=== PATIENT | female | born 1995 | race Caucasian/White ===

== ENCOUNTER 2021-11-20 06:50 | Inpatient (IN) ==
--- NOTE | 2021-11-10 10:28 | Anesthesiology Consultation ---
Date of Service November 10, 2021 Assessment & Plan (1) Encounter for pre-operative examination: Chart Review Chart Review: entry level management initiated -Will leave BSG day of procedure to anesthesiologist and OB (pt with gestational DM) Per nursing assessment 11/10/21, patient denies any recent travel. No known Covid positive contacts or Covid related symptoms. No known Covid infection in the past 90 days. Pt is fully vaccinated. Preop Covid testing scheduled 11/16/21= will await results History Surgery Operation Date: 11/20/21 08:50 Proposed Procedures p Section (Delivery of Baby Through Abdominal Incision) in LD - Obdulia Campos MD, FACOG Height/Weight Height: 5 ft 3 in Weight: 91.626 kg Allergies Allergy/AdvReac Type Severity Reaction Status Date / Time ibuprofen [From Advil] Allergy Intermediate hives Verified 11/10/21 09:48 Medications Home Medications Medication Instructions Recorded Confirmed Last Taken prenat.vits,laine,gix-skta-bhqtt 1 tab PO DAILY 04/14/21 11/10/21 Unknown acetone (urine) test (Ketone Urine #50 ea 07/20/21 11/06/21 Unknown Test) blood sugar diagnostic (OneTouch #150 ea 07/20/21 11/06/21 Unknown Verio test strips) blood-glucose meter (OneTouch #1 ea 07/20/21 11/06/21 Unknown Verio Flex meter) lancets 33 gauge (OneTouch Delica #150 ea 07/20/21 11/06/21 Unknown Plus Lancet) docusate sodium 100 mg capsule 200 mg PO DAILY 11/10/21 11/10/21 Unknown (Stool Softener) famotidine 20 mg tablet (Pepcid) 20 mg PO BID 11/10/21 11/10/21 Unknown Past Medical History Medical History Acid reflux ONLY DURING Gestational diabetes Past Family History Family History Aunt Deep vein thrombosis Family/Other Deep vein thrombosis Other Anemia Breast cancer Cervical cancer Colorectal cancer Diabetes Dyslipidemia Fibroid uterus Heart disease Hypertension No family history of adverse response to anesthesia Osteoporosis Ovarian cancer Prostate cancer Past Surgical History Surgical History Hx of tonsillectomy [place] teeth removed Social History Smoking Status: Never smoker Hx Alcohol Use: No Hx Substance Use: No
--- NOTE | 2021-11-13 16:52 | History & Physical Report ---
Date of Service November 13, 2021 Assessment & Plan (1) Breech presentation: Plan: IUP at 39 weeks with persistent breech presentation presents for primary LTCS the procedure and it's risks were reviewed with the Essie and her and all questions were answered to their satisfaction. History of Present Illness Primary Care Provider: Johnson Finley Patient is a 26 yo white female EDC 11/27/21 who presents for primary C/S for persistent breech presentation. complicated by GDM - diet controlled. She also had a uterine fibroid identified at the 20 week anatomy scan that was noted to be stable at 32 weeks growth scan. GBS -negative. Blood type O-negative Allergies Allergy/AdvReac Type Severity Reaction Status Date / Time ibuprofen [From Advil] Allergy Intermediate hives Verified 11/10/21 09:48 Home Medications Medication Instructions Recorded Confirmed Type prenat.vits,laine,bqf-oaas-plaxl 1 tab PO DAILY 04/14/21 11/10/21 History acetone (urine) test (Ketone Urine #50 ea 07/20/21 11/06/21 Rx Test) blood sugar diagnostic (OneTouch #150 ea 07/20/21 11/06/21 Rx Verio test strips) blood-glucose meter (OneTouch #1 ea 07/20/21 11/06/21 Rx Verio Flex meter) lancets 33 gauge (OneTouch Delica #150 ea 07/20/21 11/06/21 Rx Plus Lancet) docusate sodium 100 mg capsule 200 mg PO DAILY 11/10/21 11/10/21 History (Stool Softener) famotidine 20 mg tablet (Pepcid) 20 mg PO BID 11/10/21 11/10/21 History Patient History Medical History Acid reflux ONLY DURING Gestational diabetes Surgical History Hx of tonsillectomy [place] teeth removed Family History Aunt Deep vein thrombosis Family/Other Deep vein thrombosis Other Anemia Breast cancer Cervical cancer Colorectal cancer Diabetes Dyslipidemia Fibroid uterus Heart disease Hypertension No family history of adverse response to anesthesia Osteoporosis Ovarian cancer Prostate cancer Social History Smoking Status: Never smoker Second Hand Exposure: Yes ( A CHILD); Hx Alcohol Use: No Hx Substance Use: No Preferred Language: Kiswahili Communication Ability: Effective Radiology Asst Required: No Beliefs That Will Affect Care: None marital status: marital status details: Andre Hernandez ([phone] Current Living Situation: Spouse Current Living Situation Comment: lives with spouse, 4 cats, 1 dog, turtle, lizzards, gerbil. 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
[~2021-11-20 06:50] MED LIST: CITRIC ACID/SODIUM CITRATE 15 ML UDC PO SCH; LACTATED RINGER'S 1,000 ML IV SCH; ceFAZolin 2,000 MG in SYRINGE 0 ML IV SCH
[2021-11-20] MEDS ORDERED: LACTATED RINGER'S 1,000 ML IV SCH ×2 (07:15→12:00)
--- NOTE | 2021-11-20 07:49 | History & Physical Bridge Note ---
Date of Service November 20, 2021 History & Physical Bridge Note I have examined the patient, reviewed the History & Physical and in the interval since the performance of the History & Physical I have noted the following changes of clinical significance: no changes noted
[2021-11-20 07:50] LABS: Eosinophils # (auto) 0.06 K/uL (0-0.5); Eosinophils % (auto) 0.6 %; Hematocrit (blood only) 41.7 % (37-47); Hemoglobin 13.9 g/dL (12.0-16.0); Immature Granulocytes # (auto) 0.02 K/uL (0.00-0.02); Immature Granulocytes % (auto) 0.2 %; Lymphocytes # (auto) 1.71 K/uL (1.2-3.4); Lymphocytes % (auto) 16.3 %; Mean Corpuscular Hemoglobin 31.3 pg (25-34); Mean Corpuscular Hgb Conc 33.3 g/dL (32-36); Mean Corpuscular Volume 93.9 fL (80-100); Mean Platelet Volume 11.6 fL (7.4-10.4); Monocytes # (auto) 0.82 K/uL (0.11-0.59); Monocytes % (auto) 7.8 %; Neutrophils # (auto) 7.89 K/uL (1.4-6.5); Neutrophils % (auto) 75.1 %; Platelet Count 217 K/uL (130-400); RDW Coefficient of Variation 13.6 % (11.5-14.5); RDW Standard Deviation 46.8 fL (36.4-46.3); Red Blood Count 4.44 M/uL (4.2-5.4)
[2021-11-20 08:29] LABS: Creatinine Clr Calc Pharmacy 144.7 ml/min; Est GFR (African American) 142.7 ml/min; Est GFR (Non-African American) 123.2 ml/min
[2021-11-20] MEDS ORDERED: ONDANSETRON INJ 2 MG/ML 2 ML VIAL ONE (09:17)
[2021-11-20] MEDS ORDERED: fentaNYL citrate 100 MCG/2 ML VIAL ONE (09:17)
[2021-11-20] MEDS ORDERED: MoRPHine SULFATE PF 1 MG/ML 10 ML AMP/VIAL ONE (09:17)
[2021-11-20] MEDS ORDERED: OXYTOCIN 10 UNITS/ML 10ML VIAL ONE (10:47)
[2021-11-20] MEDS ORDERED: PHENYLEPHRINE 100MCG/ML 5ML SYR ONE (10:47)
[2021-11-20] MEDS ORDERED: NALBUPHINE HCL INJ 10 MG/ML AMP IV PRN (11:21)
[2021-11-20] MEDS ORDERED: ePHEDrine sulfate 50 MG/ML AMP IV PRN (11:21)
[2021-11-20] MEDS ORDERED: NALOXONE HCL 0.4 MG/1 ML VIAL/CARP IV PRN (11:21)
[2021-11-20] MEDS ORDERED: LACTATED RINGER'S 500 ML IV PRN (11:21)
[2021-11-20] MEDS ORDERED: ACETAMINOPHEN 1000 MG/100 ML IV IV PRN (11:21)
[2021-11-20] MEDS ORDERED: HYDROmorphone INJ 0.5 MG/0.5 ML SYR IV PRN (11:21)
[2021-11-20] MEDS ORDERED: MoRPHine SULFATE PF 1 MG/ML 10 ML AMP/VIAL INT SPINAL ONE (11:21)
[2021-11-20] MEDS ORDERED: NALOXONE HCL 0.08 MG in SYRINGE 1.8 ML IV PRN (11:21)
[2021-11-20] MEDS ORDERED: NALOXONE HCL 1 MG in SODIUM CHLORIDE 0.9% 1000ML 1,000 ML IV PRN (11:21)
[2021-11-20] MEDS ORDERED: diphenhydrAMINE 50 MG/ML VIAL IV PRN (11:21)
[2021-11-20] MEDS ORDERED: ONDANSETRON INJ 2 MG/ML 2 ML VIAL IV PRN ×2 (11:21→11:53)
[2021-11-20] MEDS ORDERED: KETOROLAC 30 MG/ML VIAL ONE (11:26)
[2021-11-20] MEDS ORDERED: NO NARCOTICS OR SEDATIVES SCH (11:30)
[2021-11-20] MEDS ORDERED: SODIUM CHLORIDE 0.9% 1000ML 1,000 ML IV SCH (11:30)
[2021-11-20] MEDS ORDERED: DC INTRASPINAL MORPHINE SCH (11:30)
--- NOTE | 2021-11-20 11:38 | Post Operative Brief Note ---
PG Immediate Post Op with CF Date of Surgery November 20, 2021 Pre & Post Diagnosis Operation Date: 11/20/21 08:50 Pre-Op Diagnosis: Breech Post-Op Diagnosis: Breech - delivery of viable male infant I identified the patient and participated in the time-out.: Yes Procedure Operation Date: 11/20/21 08:50 Actual Procedures p Low Transverse Section; delivery of live male - Obdulia Cervantes MD, FACOG Surgeon Obdulia Campos MD, FACOG Seo Expert Helen Genao MD Estimated Blood Loss 600 Findings Consistent with Post-Op Diagnosis Specimens Specimen Description: a. cord blood b. placenta-hold Drains Carrero Catheter (inserted following spinal with return of clear yellow urine) Anesthesia Type Spinal Complications none Disposition Accompanied Patient To Recovery: Yes
[2021-11-20] MEDS ORDERED: SENNA 8.6 MG TAB PO PRN (11:53)
[2021-11-20] MEDS ORDERED: KETOROLAC 30 MG/ML VIAL IV PRN (11:53)
[2021-11-20] MEDS ORDERED: DIPHTHERIA/TETANUS/PERTUSSIS 0.5 ML SYR/VIAL IM ONE (11:53)
[2021-11-20] MEDS ORDERED: MAGNESIUM HYDROXIDE SUSP 30 ML UDC PO PRN (11:53)
[2021-11-20] MEDS ORDERED: SUPERCREAM 0.870% 15 GM JAR EXT PRN (11:53)
[2021-11-20] MEDS ORDERED: BENZOCAINE 20% AER SPR 82.5 GM CAN EXT PRN (11:53)
[2021-11-20] MEDS ORDERED: HYDROCORTISONE ACETATE 25 MG SUPP PR PRN (11:53)
--- NOTE | 2021-11-20 12:52 | Operative Report ---
PG Post Operative Report Pre & Post Diagnosis Operation Date: 11/20/21 08:50 Pre-Op Diagnosis: Breech Post-Op Diagnosis: Breech I identified the patient and participated in the time-out.: Yes Procedure Operation Date: 11/20/21 08:50 Actual Procedures p Low Transverse Section; delivery of live male - Obdulia Cervantes MD, FACOG Surgeon Obdulia Campos MD, FACOG Manager Fine Helen Genao MD Estimated Blood Loss 600 Findings Consistent with Post-Op Diagnosis 4cm pedunculated fibroid originating from right fundus. Specimens placenta to hold Drains Carrero catheter to straight drainage- clear urine at end of case Anesthesia Type Spinal Complications none Disposition Accompanied Patient To Recovery: Yes Indications persistent breech presentation at 39 weeks- EDC 11/27/21 Description of Procedure After the patient received effective spinal anesthetic she was prepped and draped in usual sterile fashion. A low transverse skin incision was made the scalpel and carried to the fascia with the same scalpel. The fascial incision was then extended with Wheatley scissors and the edges of the fascia were grasped with Jyothi clamps. The rectus muscles were bluntly sharply dissected off of the overlying fascia. Rectus muscles were in the midline and the underlying peritoneum elevated sharply. The bladder was then taken down off the anterior surface of the uterus and placed behind the bladder blade. The lower uterine segment was entered with a scalpel and extended transversely membranes membranes were ruptured for clear fluid. The was delivered from the esme breech presentation with moderate fundal pressure pressure. After the cord was clamped and cut the was vigorous and crying. The infant was then handed off to Dr. Flores for further evaluation. The placenta was manually removed and the uterus exteriorized to cover the clean lap sponge. The uterus was closed in 2 layers ending running locking imbricating fashion with 0 Monocryl. Bleeding in the area of the left uterine vessels was secured with a [id number]-mtovx stitch hematoma developed below the uterine incision on the left sidewall of the uterus. Pressure was used to control hematoma. The hematoma did not seem to be enlarging in size and there was no active bleeding posterior to the uterus or in the area of the uterine vessels. After suctioning some blood and fluid from the posterior cul-de-sac the uterus was placed back inside the uterine cavity the uterine incision was examined once more and continue to have excellent hemostasis the hematoma also did not enlarge and appear to be stable. The gutters were explored and found to be free of any blood clot or fluid. The rectus muscle were brought together in the midline with individual stitches of 0 Monocryl. The fascia was closed in a running fashion with 0 Vicryl. After irrigating the adipose layer the skin edges were reapproximated using a subcuticular stitch of 4-0 Vicryl. Patient and tolerated the procedure well and were stable upon arrival in labor and delivery. I attest to the content of the Intraoperative Record and any orders documented therein. Any exceptions are noted below. OB Procedure Charges 60463
[2021-11-20] MEDS: OXYTOCIN 20 UNITS in LACTATED RINGER'S 1,000 ML IV SCH ×2 (13:51→23:25)
[2021-11-20] MEDS: SIMETHICONE 80 MG CHEW PO SCH ×3 (13:59→21:16)
[2021-11-20] MEDS ORDERED: PROMETHAZINE HCL 25 MG in SODIUM CHLORIDE 0.9% 50 ML IV PRN (16:16)
[2021-11-20] MEDS: DOCUSATE SODIUM 100 MG CAP PO SCH (21:16)
[2021-11-20] MEDS: KETOROLAC 30 MG/ML VIAL IV PRN (21:17)
--- NOTE | 2021-11-21 00:39 | Anesthesiology Progress Note ---
Date of Service November 21, 2021 Anesthesia Post Procedure Vital Signs Vital Signs: Temp Pulse Pulse Resp BP BP Pulse Ox 11/20/21 23:28 20 96 11/20/21 22:28 20 95 11/20/21 21:25 20 98 11/20/21 20:10 36.9 C 70 20 126/79 99 11/20/21 18:30 20 98 11/20/21 17:30 20 98 11/20/21 16:30 20 98 11/20/21 15:30 36.5 C 65 67 20 137/74 137/74 98 11/20/21 15:27 77 90 11/20/21 15:26 76 98 11/20/21 15:21 36.5 C 80 20 95 11/20/21 15:17 78 94 11/20/21 15:16 75 96 11/20/21 15:11 65 98 11/20/21 15:06 58 L 98 11/20/21 15:01 64 97 11/20/21 14:56 67 98 11/20/21 14:51 83 98 11/20/21 14:46 77 98 11/20/21 14:41 69 97 11/20/21 14:36 71 97 11/20/21 14:31 78 95 11/20/21 14:30 75 93 11/20/21 14:26 72 95 11/20/21 14:21 65 98 11/20/21 14:16 65 97 11/20/21 14:11 97 H 98 11/20/21 14:06 66 97 11/20/21 14:01 67 97 11/20/21 13:56 66 97 11/20/21 13:51 62 98 11/20/21 13:46 63 98 11/20/21 13:44 65 20 130/73 11/20/21 13:41 72 97 11/20/21 13:36 64 99 11/20/21 13:34 67 131/66 11/20/21 13:31 60 97 11/20/21 13:26 69 97 11/20/21 13:21 61 98 11/20/21 13:16 72 97 11/20/21 13:15 77 136/74 91 11/20/21 13:14 20 11/20/21 13:11 64 98 11/20/21 13:06 71 96 11/20/21 13:04 68 142/77 H 11/20/21 13:01 71 98 11/20/21 12:56 73 98 11/20/21 12:54 70 131/77 11/20/21 12:51 71 98 11/20/21 12:46 77 98 11/20/21 12:45 80 85 L 11/20/21 12:44 70 20 134/71 11/20/21 12:41 62 99 11/20/21 12:36 61 97 11/20/21 12:34 63 20 117/60 11/20/21 12:31 64 98 11/20/21 12:26 75 99 11/20/21 12:25 75 112/64 11/20/21 12:24 20 11/20/21 12:21 72 99 11/20/21 12:16 64 100 11/20/21 12:15 68 154/74 H 11/20/21 12:14 78 20 87 L 11/20/21 12:11 71 99 11/20/21 12:06 72 100 11/20/21 12:04 75 20 130/80 11/20/21 12:01 71 100 11/20/21 11:56 72 121/71 94 11/20/21 11:54 20 11/20/21 11:51 65 100 11/20/21 11:46 69 99 11/20/21 11:44 36.6 C 82 20 127/76 11/20/21 09:51 83 149/96 H 11/20/21 09:35 74 141/85 H 11/20/21 09:20 78 137/87 11/20/21 09:06 80 135/85 11/20/21 08:50 76 133/88 11/20/21 08:36 88 139/90 11/20/21 08:21 86 129/97 11/20/21 07:38 90 144/97 H 11/20/21 07:18 36.8 C 20 168/90 H 11/20/21 07:05 82 175/95 H Pain Intensity Bilateral Abdomen: Pain Intensity: 3 Transfer of Care Handoff Completed per policy Notes Mental Status: alert / awake / arousable and participated in evaluation Nausea / Vomiting: adequately controlled Pain: adequately controlled Airway Patency, RR, SpO2: stable & adequate BP & HR: stable & adequate Hydration State: stable & adequate Neuraxial Anesthesia: was administered and sensory block is resolving Anesthetic Complications: no major complications apparent and Pt Satisfied with anesthetic care
[2021-11-21] MEDS: KETOROLAC 30 MG/ML VIAL IV PRN (03:30)
[2021-11-21] MEDS ORDERED: ZOLPIDEM TARTRATE 5 MG TAB PO PRN (05:22)
[2021-11-21] MEDS ORDERED: PROMETHAZINE HCL 25 MG in SODIUM CHLORIDE 0.9% 50 ML IV PRN (05:22)
[2021-11-21] MEDS ORDERED: diphenhydrAMINE Capsule 25 MG CAP PO PRN (05:22)
[2021-11-21] MEDS ORDERED: diphenhydrAMINE 50 MG/ML VIAL IV PRN (05:22)
[2021-11-21] MEDS ORDERED: MEPERIDINE HCL 50 MG/ML CARP IV PRN (05:22)
[2021-11-21 05:55] LABS: Basophils # (auto) 0.01 K/uL (0-0.2); Basophils % (auto) 0.1 %; Eosinophils # (auto) 0.05 K/uL (0-0.5); Eosinophils % (auto) 0.4 %; Hematocrit (blood only) 36.1 % (37-47); Hemoglobin 12.1 g/dL (12.0-16.0); Immature Granulocytes # (auto) 0.03 K/uL (0.00-0.02); Immature Granulocytes % (auto) 0.2 %; Lymphocytes # (auto) 1.96 K/uL (1.2-3.4); Lymphocytes % (auto) 15.9 %; Mean Corpuscular Hemoglobin 31.6 pg (25-34); Mean Corpuscular Hgb Conc 33.5 g/dL (32-36); Mean Corpuscular Volume 94.3 fL (80-100); Mean Platelet Volume 11.2 fL (7.4-10.4); Monocytes # (auto) 0.86 K/uL (0.11-0.59); Neutrophils # (auto) 9.44 K/uL (1.4-6.5); Neutrophils % (auto) 76.4 %; Platelet Count 195 K/uL (130-400); RDW Coefficient of Variation 13.6 % (11.5-14.5); RDW Standard Deviation 47.2 fL (36.4-46.3); Red Blood Count 3.83 M/uL (4.2-5.4); White Blood Count 12.35 K/uL (4.8-10.8)
--- NOTE | 2021-11-21 06:34 | Obstetrical Progress Note ---
Date of Service November 21, 2021 Assessment & Plan (1) Encounter for supervision of normal intrauterine in primigravida, antepartum: Plan: 26 yo , now , POD 1 s/p LTCS at 39 weeks -Continue routine care -Vitals reviewed- HDS, afebrile -O-, GBS-, Rubella immune, baby is Rh-, so no additional Rhogam -Encourage ambulation, regular diet -Pain control with ibuprofen, acetaminophen PRN -Encourage -Hgb 12.1 -F/u in [address] Cervantes Admission and Anticipated Discharge Date Admission Date: November 20, 2021 Supervising Physician Co-Signing Physician Notes Resident Physician Supervision Note: I interviewed and examined the patient. Discussed with Dr. Stephens and agree with findings and plan as documented in the note. Any exceptions or clarifications are listed here: [None] Documented By: Obdulia Campos MD, FACOG Subjective POD 1 s/p LCTS. Patient seen and examined at bedside. Reports no acute overnight events. Ambulating, but hasn't voided w/o mijares yet. Mijares removed 2 hours prior to interview. Passing gas w/o BM. Regular diet w/o N/V. Lochia small per patient. w/o complication. Pain 2/10 ontrolled with motrin and tylenol, no percocet used. Review of Systems Review of Systems: Denies fevers/chills. Denies dyspnea, cough. Denies chest pain. Denies breast pain or discharge. Denies dysuria. Denies headache. Denies back pain. Physical Exam Physical Exam: General: Alert, oriented, no acute distress Cardiac: Regular rate and rhythm, normal S1, S2. No murmurs appreciated. Respiratory: Clear to auscultation b/l with good air flow entry, symmetric chest rise and fall. No wheezes or crackles. No increased work of breathing or accessory muscle use Abdomen: Soft, nontender, nondistended. Fundus firm and palpable at 2 cm below umbilicus. Surgical incision clean, dry and intact without erythema, warmth or drainage. Bowel sounds appreciated. No guarding or rebound. Skin: No rashes or lesions Extremities: Warm, dry, well-perfused with capillary refill <2s b/l. No lower extremity edema, erythema or swelling. Negative James's sign b/l. Results & Data ([facility]) Vital Signs (Past 12 Hours) Vital Signs Temp Pulse Pulse Resp BP BP Pulse Ox 11/21/21 05:25 18 99 11/21/21 04:30 18 99 11/21/21 03:30 36.8 C 67 18 116/70 99 11/21/21 02:10 18 99 11/21/21 01:30 18 99 11/21/21 00:00 36.7 C 65 18 119/76 99 11/20/21 23:28 20 96 11/20/21 23:15 18 99 11/20/21 22:28 20 95 11/20/21 21:25 20 98 11/20/21 20:10 36.9 C 70 20 126/79 99
[2021-11-21] MEDS: PRENATAL VITAMIN 1 TAB PO SCH (08:32)
[2021-11-21] MEDS: DOCUSATE SODIUM 100 MG CAP PO SCH ×2 (08:33→20:38)
[2021-11-21] MEDS: SIMETHICONE 80 MG CHEW PO SCH ×4 (08:33→20:38)
[2021-11-21] MEDS: FERROUS SULFATE 325 MG TAB PO SCH (08:33)
[2021-11-21] MEDS: IBUPROFEN 600 MG TAB PO PRN ×3 (08:37→22:43)
[2021-11-21] MEDS: oxyCODONE/ACETAMINOPHEN 5mg/325mg TAB PO PRN ×3 (08:38→22:43)
[2021-11-21] MEDS ORDERED: bisacodyL 5 MG TABEC PO SCH (20:00)
[2021-11-22] MEDS: IBUPROFEN 600 MG TAB PO PRN ×2 (03:51→10:57)
[2021-11-22] MEDS: oxyCODONE/ACETAMINOPHEN 5mg/325mg TAB PO PRN ×2 (03:52→10:58)
--- NOTE | 2021-11-22 06:16 | Obstetrical Progress Note ---
Date of Service November 22, 2021 Assessment & Plan (1) Encounter for supervision of normal intrauterine in primigravida, antepartum: Plan: 26 yo , now , POD 1 s/p LTCS at 39 weeks -Expect D/C today -Continue routine care -Vitals reviewed- HDS, afebrile -O-, GBS-, Rubella immune, baby is Rh-, so no additional Rhogam -Encourage ambulation, regular diet -Pain control with ibuprofen, acetaminophen PRN -Encourage -Hgb 12.1 -F/u in [address] Cervantes Admission and Anticipated Discharge Date Admission Date: November 20, 2021 Supervising Physician Co-Signing Physician Notes Resident Physician Supervision Note: I interviewed and examined the patient. Discussed with Dr. Stephens and agree with findings and plan as documented in the note. Any exceptions or clarifications are listed here: POD#2 doing well. DC home. Rx percocet #20 tabs to [facility]. Followup in office in 6w. Reviewed discharge planning. Documented By: Stefania Amos, Subjective POD 2 s/p LCTS. Patient seen and examined at bedside. Reports no acute overnight events. Ambulating and voiding. Passing gas w/o BM. Regular diet w/o N/V. Lochia small per patient. w/o complication. Pain 2/10 controlled with motrin and tylenol, no percocet used. Review of Systems Review of Systems: Denies fevers/chills. Denies dyspnea, cough. Denies chest pain. Denies breast pain or discharge. Denies dysuria. Denies headache. Denies back pain. Physical Exam Physical Exam: General: Alert, oriented, no acute distress Cardiac: Regular rate and rhythm, normal S1, S2. No murmurs appreciated. Respiratory: Clear to auscultation b/l with good air flow entry, symmetric chest rise and fall. No wheezes or crackles. No increased work of breathing or accessory muscle use Abdomen: Soft, nontender, nondistended. Fundus firm and palpable at 2 cm below umbilicus. Surgical incision clean, dry and intact without erythema, warmth or drainage. Bowel sounds appreciated. No guarding or rebound. Skin: No rashes or lesions Extremities: Warm, dry, well-perfused with capillary refill <2s b/l. No lower extremity edema, erythema or swelling. Negative James's sign b/l. Results & Data ([facility]) Vital Signs (Past 12 Hours) Vital Signs Temp Pulse Resp BP Pulse Ox 11/21/21 23:15 36.7 C 84 18 136/87 100
[2021-11-22 06:44] LABS: Hematocrit (blood only) 33.5 % (37-47); Hemoglobin 10.7 g/dL (12.0-16.0)
[2021-11-22] MEDS: SIMETHICONE 80 MG CHEW PO SCH (09:21)
[2021-11-22] MEDS: PRENATAL VITAMIN 1 TAB PO SCH (09:21)
[2021-11-22] MEDS: FERROUS SULFATE 325 MG TAB PO SCH (09:22)
[2021-11-22] MEDS: DOCUSATE SODIUM 100 MG CAP PO SCH (09:22)
[2021-11-22] MEDS ORDERED: bisacodyL 10 MG SUPP PR PRN (11:53)
--- NOTE | 2021-11-28 11:18 | Discharge Summary (DS) ---
DATE OF ADMISSION: 11/20/2021 DATE OF DISCHARGE: 11/22/2021 PRINCIPAL DIAGNOSIS: Intrauterine at 39 weeks with persistent breech presentation. PRINCIPAL PROCEDURE: Primary low transverse section. HISTORY: The patient is a 26-year-old 1, para 0 white female, EDC of 11/27/2021, presented f or primary section because of persistent breech presentation. The low transverse s ection was done without complications. She had an uncomplicated postop course. She was tolerating r egular diet on her first postop day, ambulating without difficulty, voiding without difficulty. Pain was well controlled with p.o. Tylenol and Motrin. Hemoglobin on admission was 13.9, hematocrit of 4 1.7. First postop day hemoglobin 12.1, hematocrit 36.1. Second postop day hemoglobin 10.7, hematocrit 33.5. She was sent home in good condition with a prescription for Motrin 600 mg p.o. q.6 hours p.r. n. pain, Tylenol 650 mg p.o. q.6 hours p.r.n. pain. She is to see me in the office in 6 weeks for fo nicole. She is to call for temperature of 101 degrees or higher, heavy vaginal bleeding, burning wit h urination, increased redness, drainage or pain in her incision, calf tenderness or any other concer ns. Job ID: [id number]
== END 2021-11-22 12:44 | disposition home or self-care (01) | DRG 788 ==
LOC: 4S1 → EDSTATUS 08:50 → 4S2 15:50

== ENCOUNTER 2025-01-05 15:09 | Inpatient (IN) ==
[2025-01-05] MEDS ORDERED: Patient's ALLERGY Info needs ENTERED STA (16:25)
[2025-01-05] MEDS: LACTATED RINGER'S 1,000 ML IV ONE (16:42)
[2025-01-05 16:52] LABS: Hematocrit (blood only) 41.4 % (37.0-47.0); Hemoglobin 14.1 g/dl (12.0-16.0); Mean Corpuscular Hemoglobin 31.5 pg (25.0-34.0); Mean Corpuscular Hgb Conc 34.1 g/dL (32.0-36.0); Mean Corpuscular Volume 92.6 fL (80.0-100.0); Mean Platelet Volume 11.6 fL (9.4-12.4); Platelet Count 201 K/uL (130-400); RDW Coefficient of Variation 13.4 % (11.5-14.5); RDW Standard Deviation 45.3 fL (36.4-46.3); Red Blood Count 4.47 M/uL (4.20-5.40); White Blood Count 9.58 K/ul (4.8-10.8)
[2025-01-05 17:10] LABS: Albumin Level 3.5 gm/dl (3.4-5.0); BUN Creatinine Ratio 21.3 (10-20); Bilirubin Direct 0.1 mg/dl (0-0.2); Bilirubin,Total 0.4 mg/dl (0.2-1.0); Calcium 9.6 mg/dl (8.6-10.3); Creatinine Clr Calc Pharmacy 146.7 ml/min; Globulin 3.4 gm/dl (2.5-4.0); Potassium 3.8 mmol/L (3.5-5.1); Total Protein 6.9 gm/dl (6.0-8.3)
--- NOTE | 2025-01-05 17:38 | History & Physical Report ---
Date of Service January 05, 2025 Assessment & Plan (1) 39 weeks gestation of : (2) Velamentous insertion of umbilical cord: (3) Previous delivery affecting , antepartum: (4) Elevated blood pressure reading: Plan fhts currently reassuring however non reactive. past documented decels would require continued close monitoring. bps now elevated. labs normal. ? developing gest htn. prior c/s and would plan repeat c/s and so keep npo. given ega do not think any other testing like civil design specialist or bpp would reassure me enough to not continue to monitor or deliver. I have reviewed such with couple. The verbalize understanding. History of Present Illness Chief Complaint: sent from office after decel on monitor Primary Care Provider: NO PCP 29yo at 37+wks maynor presents to LD from office when she was there for routine visit with nst and nst captured deceleration of heart tones. Patient was having wkly nsts due to velamentous insertion of umbilical cord. Denies rom, vb. +FM. No ctx that she feels. Of note arrival bps elevated x 2. No catherine or visual change No ruq pain. Has not eaten since about 11am. She apparently had 2min ? decels of fhts in office to 70s per RN ACLS in office. She was sent here and on arrival fhts 145 with no appreciable accels and no decels. Nursing felt fhts may have been 100s on arrival but not traced well. Opted to start IV fluid bolus and obtain labs and keep npo as she would be repeat c/s for delivery. Upon getting up to void and returning to monitor, fhts again notably in 100-110s with return in baseline in 2min time and followed by variables with no 15 x15 accels and good variability. I was called and arrived to bedside. PNC c/b 1. Prior c/s, desires repeat c/s 2. GDM diet controlled. 3. Velamentous cord insertion 4. Rh neg 5. Uterine fibroid. PNL rh neg, RI, GBS neg. OBH: prior c/s GYNH: nl paps no stds Allergies Allergy/AdvReac Type Severity Reaction Status Date / Time No Known Drug Allergies Allergy Unknown Verified 01/05/25 16:46 Home Medications Medication Instructions Recorded Confirmed Type prednisolone acetate 1 drp ophthalmic (eye) Q OTHER DAY 06/10/24 01/05/25 History acetone (urine) test (Ketone Urine #50 ea 06/17/24 01/05/25 Rx Test strips) blood sugar diagnostic (OneTouch #150 ea 06/17/24 01/05/25 Rx Verio test strips) blood-glucose meter (OneTouch #1 ea 06/17/24 01/05/25 Rx Verio Reflect Meter) lancets 33 gauge (OneTouch Delica #150 ea 06/17/24 01/05/25 Rx Plus Lancet) vits no.124-ferrous fum 1 tab PO DAILY 01/05/25 01/05/25 History 27 mg iron-folic acid 800 mcg tablet ( Vitamin) Patient History Medical History Varicella vaccination Encounter for pre-operative examination Acid reflux Gestational diabetes Surgical History S/P section [place] teeth removed Hx of tonsillectomy Family History Aunt Deep vein thrombosis Diabetes Family/Other Deep vein thrombosis Sister Breast cancer Uncle Colorectal cancer Grandmother (Maternal) Diabetes Other Anemia Cervical cancer Dyslipidemia Fibroid uterus Heart disease Hypertension No family history of adverse response to anesthesia Osteoporosis Ovarian cancer Prostate cancer Social History (Updated 06/10/24 @ 10:54 by Anai Cordova) Smoking Status: Never smoker Second Hand Exposure: Yes ( A CHILD); Do You Dip or Chew Tobacco: No; Hx Alcohol Use: No Hx Substance Use: No Preferred Language: Lithuanian Communication Ability: Effective Software Validation Technician Required: No Beliefs That Will Affect Care: None marital status: marital status details: Andre Hernandez (28) [phone] Current Living Situation: Spouse and Family Current Living Situation Comment: and son current occupational status: employed current occupation: [employer] Other Information That Helps Us Care for You: No Feels Safe at Home: Yes Safety Concerns: Feels Safe At This Time Assistive Devices: None Review of Systems as per Subjective / HPI Physical Exam Constitutional: WD/WN, vitals as above Respiratory: normal respiratory effort, lungs clear to auscultation Cardiovascular: Rate/Rhythm: regular rate and regular rhythm Gastrointestinal (Abdomen): soft gravid nt Musculoskeletal: no edema nontender calves Neurologic: grossly normal Psychiatric: A+Ox3, euthymic affect Genitourinary: OB Exam Monitor Tracing: + external FHT monitor used, + external uterine monitor used (q7min, no decels with ctx but not qualifying for civil design specialist), + category I (currently 145, non reactive but reassuring. ) and + normal FHT variability Results & Data Vital Signs (Past 12 Hours) Vital Signs Temp Pulse Resp BP 01/05/25 17:18 81 01/05/25 17:18 144/86 H 01/05/25 17:02 75 01/05/25 17:02 133/81 01/05/25 16:15 104 H 01/05/25 16:15 121/86 01/05/25 16:00 99 H 01/05/25 16:00 137/89 01/05/25 15:33 98 H 01/05/25 15:33 141/92 H 01/05/25 15:27 98.1 F 20 01/05/25 15:20 96 H 139/104 H Coding Level of Care Code None Diagnoses 39 weeks gestation of Z3A.39 Velamentous insertion of umbilical cord O43.129 Previous delivery affecting , antepartum O34.219 Elevated blood pressure reading R03.0
[2025-01-05] MEDS ORDERED: MoRPHine SULFATE PF 1 MG/ML 10 ML AMP/VIAL ONE (17:49)
--- NOTE | 2025-01-05 17:49 | Anesthesiology Consultation ---
Date of Service January 05, 2025 Assessment & Plan Chart Review Chart Review: Acceptable Risk for Surgery and Patient NOT seen in Pre Admission Testing Consults Requested none History Height/Weight Height: 5 ft 3 in Weight: 92.079 kg Allergies Allergy/AdvReac Type Severity Reaction Status Date / Time No Known Drug Allergies Allergy Unknown Verified 01/05/25 16:46 Medications Home Medications Medication Instructions Recorded Confirmed Last Taken prednisolone acetate 1 drp ophthalmic (eye) Q OTHER DAY 06/10/24 01/05/25 12/29/24 08:00 acetone (urine) test (Ketone Urine #50 ea 06/17/24 01/05/25 Unknown Test strips) blood sugar diagnostic (OneTouch #150 ea 06/17/24 01/05/25 Unknown Verio test strips) blood-glucose meter (OneTouch #1 ea 06/17/24 01/05/25 Unknown Verio Reflect Meter) lancets 33 gauge (OneTouch Delica #150 ea 06/17/24 01/05/25 Unknown Plus Lancet) vits no.124-ferrous fum 1 tab PO DAILY 01/05/25 01/05/25 01/05/25 15:44 27 mg iron-folic acid 800 mcg tablet ( Vitamin) Past Medical History Medical History Varicella vaccination Encounter for pre-operative examination Acid reflux Gestational diabetes Past Family History Family History Aunt Deep vein thrombosis Diabetes Family/Other Deep vein thrombosis Sister Breast cancer Uncle Colorectal cancer Grandmother (Maternal) Diabetes Other Anemia Cervical cancer Dyslipidemia Fibroid uterus Heart disease Hypertension No family history of adverse response to anesthesia Osteoporosis Ovarian cancer Prostate cancer Past Surgical History Surgical History S/P section [place] teeth removed Hx of tonsillectomy Social History Smoking Status: Never smoker Do You Dip or Chew Tobacco: No Hx Alcohol Use: No Hx Substance Use: No Physical Exam Vital Signs Last Vital Signs Temp 36.7 C 01/05/25 15:27 Pulse 86 01/05/25 17:33 Resp 20 01/05/25 15:27 BP 149/89 H 01/05/25 17:33 Testing Laboratory Results 01/05/25 16:37 01/05/25 16:37
[2025-01-05] MEDS ORDERED: PHENYLEPHRINE HCL 10 MG/ML VIAL ONE (17:50)
[2025-01-05] MEDS ORDERED: fentaNYL citrate PF 100 MCG/2 ML VIAL ONE (17:50)
[2025-01-05] MEDS ORDERED: OXYTOCIN 10 UNITS/ML VIAL ONE ×3 (17:55)
[2025-01-05] MEDS ORDERED: LACTATED RINGER'S 1,000 ML IV SCH ×3 (18:00→19:36)
--- NOTE | 2025-01-05 18:00 | Labor Progress Brief Note ---
Date of Service January 05, 2025 Subjective pt resting on side as was coming out to check position and dvp with u/s Assessment & Plan (1) 37 weeks gestation of : (2) Velamentous insertion of umbilical cord: (3) Previous delivery affecting , antepartum: (4) Elevated blood pressure reading: (5) Non-reassuring heart tones complicating , antepartum: Plan now with this recurrent spont decel rec to couple that we proceed to c/s. consent reviewed and signed. anesth and nursery called. abx ordered. possible dx of gest htn as well, will keep in mind. bedside u/s cephalic and normal dvp on brief bedside u/s. no evidence of CHEYANNE fibroid. Physical Exam Constitutional: WD/WN, vitals as above Genitourinary: OB Exam Monitor Tracing: + external FHT monitor used (2 minute decel with benjamin in 70s, resolved with position change) Results & Data Vital Signs (Past 12 Hours) Vital Signs Temp Pulse Resp BP 01/05/25 17:48 83 01/05/25 17:48 162/85 H 01/05/25 17:33 86 01/05/25 17:33 149/89 H 01/05/25 17:18 81 01/05/25 17:18 144/86 H 01/05/25 17:02 75 01/05/25 17:02 133/81 01/05/25 16:15 104 H 01/05/25 16:15 121/86 01/05/25 16:00 99 H 01/05/25 16:00 137/89 01/05/25 15:33 98 H 01/05/25 15:33 141/92 H 01/05/25 15:27 98.1 F 20 01/05/25 15:20 96 H 139/104 H Coding Level of Care Code None Diagnoses 37 weeks gestation of Z3A.37 Velamentous insertion of umbilical cord O43.129 Previous delivery affecting , antepartum O34.219 Elevated blood pressure reading R03.0 Non-reassuring heart tones complicating , antepartum O36.8390
[2025-01-05] MEDS: ACETAMINOPHEN 500 MG TAB PO SCH (18:02)
[2025-01-05] MEDS: CITRIC ACID/SODIUM CITRATE 15 ML UDC PO SCH (18:03)
[2025-01-05] MEDS: ceFAZolin 2000MG 2,000 MG/15 ML SYR IV SCH (18:04)
[2025-01-05] MEDS ORDERED: ONDANSETRON INJ 2 MG/ML 2 ML VIAL IV PRN (18:24)
[2025-01-05] MEDS ORDERED: MoRPHine SULFATE PF 1 MG/ML 10 ML AMP/VIAL INT SPINAL ONE (18:24)
[2025-01-05] MEDS ORDERED: DROPERIDOL 5 MG/2 ML VIAL IV PRN (18:24)
[2025-01-05] MEDS ORDERED: NALOXONE HCL 1 MG in SODIUM CHLORIDE 0.9% 1,000 ML IV PRN (18:24)
[2025-01-05] MEDS ORDERED: NALOXONE HCL 0.4 MG/1 ML VIAL/CARP IV PRN (18:24)
[2025-01-05] MEDS ORDERED: NALBUPHINE HCL INJ 10 MG/ML AMP IV PRN (18:24)
[2025-01-05] MEDS ORDERED: ePHEDrine sulfate 50 MG/ML AMP IV PRN (18:24)
[2025-01-05] MEDS ORDERED: NALOXONE HCL 0.08 MG in SYRINGE 1.8 ML IV PRN (18:24)
[2025-01-05] MEDS ORDERED: HYDROmorphone INJ 0.5 MG/0.5 ML SYR IV PRN (18:24)
[2025-01-05] MEDS ORDERED: oxyCODONE HCL IR 5 MG TAB (IMMEDIATE RELEASE) PO PRN (18:24)
[2025-01-05] MEDS ORDERED: diphenhydrAMINE 50 MG/ML VIAL IV PRN (18:24)
[2025-01-05] MEDS ORDERED: NO NARCOTICS OR SEDATIVES SCH (18:30)
[2025-01-05] MEDS ORDERED: ONDANSETRON INJ 2 MG/ML 2 ML VIAL ONE (18:44)
[2025-01-05] MEDS ORDERED: PROMETHAZINE HCL INJ 25 MG/ML 1 ML VIAL ONE (18:44)
[2025-01-05] MEDS ORDERED: DEXAMETHASONE SOD INJ 4 MG/ML VIAL ONE (18:44)
--- NOTE | 2025-01-05 19:11 | Operative Report ---
Post Operative Report Pre & Post Diagnosis Operation Date: 01/05/25 18:30 Pre-Op Diagnosis: 1. 37 week iup 2. Prior section, desires repeat section 3. Nonreassuring Heart Tones Post-Op Diagnosis: 1. 37 week iup 2. Prior section, desires repeat section 3. Nonreassuring Heart Tones I identified the patient and participated in the time-out.: Yes Procedure Operation Date: 01/05/25 18:30 Actual Procedures p Repeat Low Transverse Section in delivery of live male child at 1828 - Charlee Felix MD, FACOG Surgeon Charlee Felix MD, FACOG [employer] Penc[employer] Repairer RN Quantitative Blood Loss (QBL) 883 Findings Consistent with Post-Op Diagnosis (viable male, apgars 9,9. normal uterus tubes and ovaries bilaterally. no obvious fibroid. ) Fluids 800cc Specimens cord blood placenta Drains mijares Anesthesia Type Spinal Complications none Disposition Accompanied Patient To Recovery: No Disposition: L&D Indications 29yo at 37wks with velamentous cord insertion and non reassuring fhts on monitoring. Prior c/s and desired repeat c/s. Description of Procedure The patient was taken to the operating room and identified. After adequate anesthesia was obtained, she was placed in the supine position with a leftward tilt on the operating table and prepped and draped in the usual sterile fashion. A mijares catheter had already been placed. The knife was used to create a Pfannensteil skin incision that was carried down to the underlying layer of fascia. The fascia was nicked in the midline and this opening was extended laterally using Wheatley scissors. Jyothi clamps were placed on the superior and inferior aspect of the fascial incision tenting it upward and the underlying rectus muscles were dissected off the overlying fascia both sharply and bluntly using Wheatley scissors. The rectus muscles were bluntly in the midline. The peritoneal cavity was bluntly entered into. This opening was stretched. The bladder blade was placed. The vesicouterine peritoneum was elevated and opened up into and the bladder flap was created digitally and bladder blade was replaced. The knife was used to create a hysterotomy and this opening was stretched. The operators hand was placed through the hysterotomy and the bladder blade was removed. The head was elevated and flexed and with fundal pressure the head was delivered. The shoulders and body were rapidly delivered. The cord was clamped and cut and the 's mouth and nares were bulb suction. The infant was handed off to the awaiting pediatricians. Cord blood was obtained. The placenta was manually expressed. The uterus was ext eriorized and cleared of all clots and debris. Dilute IV Pitocin was begun. The uterine tone was improving. The hysterotomy was closed in a running interlocking fashion using 0 Vicryl followed by a second imbricating layer of 0 Vicryl. The hysterotomy was hemostatic. The pelvis was irrigated. The uterus was returned to the abdomen. The gutters were cleared of all clots and debris. The hysterotomy was reinspected and 2 small bleeding sites with stitched with interrupted sutures of 2-0 vicryl. The areas were then noted to be hemostatic. Perclot 4gm placed across the hysterotomy site. The fascia was then closed in running fashion using 0 Vicryl. The subcutaneous fat was copiously irrigated and reapproximated using 2-0 chromic. The skin was closed in a subcuticular fashion using 4-0 monocryl. At this point the procedure was terminated. The patient was transferred to the recovery room in stable condition. All sponge, lap and needle counts are correct x2. I attest to the content of the Intraoperative Record and any orders documented therein. Any exceptions are noted below. OB Procedure Charges 38074
[2025-01-05] MEDS ORDERED: SODIUM CHLORIDE 0.9% 100 ML IV PRN (19:15)
[2025-01-05] MEDS ORDERED: SODIUM CHLORIDE 0.9% 50 ML IV PRN (19:15)
[2025-01-05] MEDS ORDERED: DIPHTHER/TETAN/PERTUS Vaccine (Tdap, Adol/Adult) 0.5mL IM ONE (19:36)
[2025-01-05] MEDS ORDERED: HYDROCORTISONE ACETATE 25 MG SUPP PR PRN (19:36)
[2025-01-05] MEDS ORDERED: SENNA 8.6 MG TAB PO PRN (19:36)
[2025-01-05] MEDS ORDERED: CALCIUM CARBONATE 500 MG CHEWABLE TAB PO PRN (19:36)
[2025-01-05] MEDS ORDERED: SODIUM CHLORIDE 0.9% 1,000 ML IV SCH (19:36)
[2025-01-05] MEDS ORDERED: BENZOCAINE 20% SPRY 85 APPLN/85 GM CAN EXT PRN (19:36)
[2025-01-05] MEDS ORDERED: MAGNESIUM HYDROXIDE SUSP 30 ML UDC PO PRN (19:36)
--- NOTE | 2025-01-05 19:37 | Anesthesiology Progress Note ---
Date of Service January 05, 2025 Anesthesia Post Procedure Vital Signs Vital Signs: Temp Pulse Resp BP Pulse Ox 01/05/25 19:32 65 16 106/69 99 01/05/25 19:32 65 01/05/25 19:32 106/69 01/05/25 19:31 97 01/05/25 19:31 67 01/05/25 19:26 99 01/05/25 19:26 70 01/05/25 19:22 74 16 108/69 99 01/05/25 19:22 74 01/05/25 19:22 108/69 01/05/25 19:21 98 01/05/25 19:21 70 01/05/25 19:16 97 01/05/25 19:16 67 01/05/25 19:13 76 01/05/25 19:13 103/62 01/05/25 19:12 36.7 C 18 01/05/25 19:11 97 01/05/25 19:11 77 01/05/25 17:48 83 01/05/25 17:48 162/85 H 01/05/25 17:33 86 01/05/25 17:33 149/89 H 01/05/25 17:18 81 01/05/25 17:18 144/86 H 01/05/25 17:02 75 01/05/25 17:02 133/81 01/05/25 16:15 104 H 01/05/25 16:15 121/86 01/05/25 16:00 99 H 01/05/25 16:00 137/89 01/05/25 15:33 98 H 01/05/25 15:33 141/92 H 01/05/25 15:27 36.7 C 20 01/05/25 15:20 96 H 139/104 H Notes Mental Status: alert / awake / arousable Patient Amnestic to Procedure: Yes Nausea / Vomiting: adequately controlled Pain: adequately controlled Airway Patency, RR, SpO2: stable & adequate BP & HR: stable & adequate Hydration State: stable & adequate Neuraxial Anesthesia: was administered and sensory block is resolving Anesthetic Complications: no major complications apparent
[2025-01-05] MEDS: KETOROLAC 30 MG/ML VIAL IV SCH (19:49)
[2025-01-05] MEDS: OXYTOCIN 20 UNITS/LR 1,002 ML IV SCH (19:50)
[2025-01-05] MEDS: DOCUSATE SODIUM 100 MG CAP PO SCH (21:20)
[2025-01-05] MEDS: SIMETHICONE 80 MG CHEW PO SCH (21:20)
[2025-01-06] MEDS: ACETAMINOPHEN 325 MG TAB PO SCH (01:58)
[2025-01-06 06:02] LABS: Basophils # (auto) 0.02 K/uL (0.00-0.20); Basophils % (auto) 0.2 %; Hematocrit (blood only) 33.3 % (37.0-47.0); Hemoglobin 11.3 g/dl (12.0-16.0); Immature Granulocytes # (auto) 0.04 K/uL (0.01-0.20); Immature Granulocytes % (auto) 0.4 %; Lymphocytes % (auto) 11.9 %; Mean Corpuscular Hemoglobin 31.2 pg (25.0-34.0); Mean Corpuscular Hgb Conc 33.9 g/dL (32.0-36.0); Mean Platelet Volume 11.7 fL (9.4-12.4); Monocytes # (auto) 0.62 K/uL (0.11-0.59); Monocytes % (auto) 5.7 %; Neutrophils # (auto) 8.91 K/uL (1.40-6.50); Neutrophils % (auto) 81.8 %; Platelet Count 188 K/uL (130-400); RDW Coefficient of Variation 13.2 % (11.5-14.5); RDW Standard Deviation 44.2 fL (36.4-46.3); Red Blood Count 3.62 M/uL (4.20-5.40); White Blood Count 10.89 K/ul (4.8-10.8)
--- NOTE | 2025-01-06 07:25 | Obstetrical Progress Note ---
Date of Service January 06, 2025 Assessment & Plan (1) delivery delivered: Plan: 29 years P2 , 1st POD following delivery for decels and previous CS. Continue care as per protocol. Encouraged nursing with mother's milk. Encouraged ambulation. Encouraged deep breathing. Admission and Anticipated Discharge Date Admission Date: January 05, 2025 Supervising Physician Co-Signing Physician Notes Resident Physician Supervision Note: I interviewed and examined the patient. Discussed with Dr. Hess and agree with findings and plan as documented in the note. Any exceptions or clarifications are listed here: pt doing well this am. eating, voiding, ambulating without is salazar. no bleeding issues. baby in INBN intermittently requires O2. Abd soft ff 2 down nt, incision c/d/i, Ext nt calves. no edema. POD #1 s/p c/s doing well. will cont to watch bps. hgb noted. routine care. Documented By: Charlee Felix MD, FACOG Subjective 29 years P2 , 1st POD following delivery for decels and previous CS. No active complains Mom doing well. Baby at level 2 nursery. Mom seen on bedside at nursery. Pain: Mild, intermittent, manageable on painkillers. Lochia: Moderate Diet: Regular OB diet Gas:Passed Peeing: Well after mijares removal Ambulation: well, without any complication Answered her queries. Review of Systems Review of Systems: No SOB, chest pain, leg pain No dizziness, headache, palpitation No Blurring of vision , fever Physical Exam 2 Physical Exam: General: Alert and oriented. No acute distress. CVS: S1 S2+ No murmurs, regular rhythm. Respiratory: CTA bilaterally. No rhonchi, wheezes, or crackles. No increased work of breathing. Abdomen: Bowel sound +. Soft, nontender Uterus: Fundus firm and palpable few cm below the umbilicus. Incision site looks healthy: Dry, No swelling, Erythema Lower extremities: No LE edema. No deep calf pain. Results & Data Vital Signs (Past 12 Hours) Vital Signs Temp Pulse Pulse Pulse Resp BP BP 01/06/25 03:54 01/06/25 03:54 36.7 C 79 01/06/25 00:11 20 01/06/25 00:11 36.4 C L 80 01/05/25 21:16 01/05/25 21:16 67 01/05/25 21:13 18 01/05/25 21:13 36.6 C 60 18 129/74 01/05/25 21:12 36.6 C 16 01/05/25 21:12 60 01/05/25 21:12 129/74 01/05/25 21:11 01/05/25 21:11 67 01/05/25 21:06 01/05/25 21:06 69 01/05/25 21:01 01/05/25 21:01 66 01/05/25 20:56 01/05/25 20:56 61 01/05/25 20:53 01/05/25 20:53 60 01/05/25 20:51 01/05/25 20:51 72 01/05/25 20:46 01/05/25 20:46 61 01/05/25 20:42 16 01/05/25 20:42 59 L 01/05/25 20:42 130/72 01/05/25 20:41 01/05/25 20:41 63 01/05/25 20:36 01/05/25 20:36 64 01/05/25 20:31 01/05/25 20:31 62 01/05/25 20:26 01/05/25 20:26 64 01/05/25 20:21 01/05/25 20:21 62 01/05/25 20:16 01/05/25 20:16 71 01/05/25 20:13 56 L 01/05/25 20:13 119/74 01/05/25 20:12 62 18 119/74 01/05/25 20:11 01/05/25 20:11 58 L 01/05/25 20:06 01/05/25 20:06 70 01/05/25 20:03 63 01/05/25 20:03 121/74 01/05/25 20:02 66 16 121/74 01/05/25 20:01 01/05/25 20:01 64 01/05/25 19:56 01/05/25 19:56 64 01/05/25 19:53 60 01/05/25 19:53 113/78 01/05/25 19:52 64 16 113/78 01/05/25 19:51 01/05/25 19:51 69 01/05/25 19:46 01/05/25 19:46 61 01/05/25 19:42 58 L 16 115/74 01/05/25 19:42 60 01/05/25 19:42 115/74 01/05/25 19:41 01/05/25 19:41 64 01/05/25 19:36 01/05/25 19:36 63 01/05/25 19:32 65 16 106/69 01/05/25 19:32 65 01/05/25 19:32 106/69 01/05/25 19:31 01/05/25 19:31 67 01/05/25 19:26 01/05/25 19:26 70 01/05/25 19:22 74 16 108/69 01/05/25 19:22 74 01/05/25 19:22 108/69 BP Pulse Ox O2 Del Method 01/06/25 03:54 98 01/06/25 03:54 133/83 98 Room Air 01/06/25 00:11 98 01/06/25 00:11 121/80 98 Room Air 01/05/25 21:16 91 01/05/25 21:16 01/05/25 21:13 97 01/05/25 21:13 97 Room Air 01/05/25 21:12 01/05/25 21:12 01/05/25 21:12 01/05/25 21:11 96 01/05/25 21:11 01/05/25 21:06 97 01/05/25 21:06 01/05/25 21:01 96 01/05/25 21:01 01/05/25 20:56 96 01/05/25 20:56 01/05/25 20:53 94 01/05/25 20:53 01/05/25 20:51 95 01/05/25 20:51 01/05/25 20:46 96 01/05/25 20:46 01/05/25 20:42 01/05/25 20:42 01/05/25 20:42 01/05/25 20:41 96 01/05/25 20:41 01/05/25 20:36 97 01/05/25 20:36 01/05/25 20:31 97 01/05/25 20:31 01/05/25 20:26 96 01/05/25 20:26 01/05/25 20:21 97 01/05/25 20:21 01/05/25 20:16 98 01/05/25 20:16 01/05/25 20:13 01/05/25 20:13 01/05/25 20:12 98 01/05/25 20:11 97 01/05/25 20:11 01/05/25 20:06 98 01/05/25 20:06 01/05/25 20:03 01/05/25 20:03 01/05/25 20:02 96 01/05/25 20:01 96 01/05/25 20:01 01/05/25 19:56 97 01/05/25 19:56 01/05/25 19:53 01/05/25 19:53 01/05/25 19:52 97 01/05/25 19:51 97 01/05/25 19:51 01/05/25 19:46 97 01/05/25 19:46 01/05/25 19:42 97 01/05/25 19:42 01/05/25 19:42 01/05/25 19:41 98 01/05/25 19:41 01/05/25 19:36 96 01/05/25 19:36 01/05/25 19:32 99 01/05/25 19:32 01/05/25 19:32 01/05/25 19:31 97 01/05/25 19:31 01/05/25 19:26 99 01/05/25 19:26 01/05/25 19:22 99 01/05/25 19:22 01/05/25 19:22 Resident Activity Tracking Resident Involvement: Resident Care Provided Care Provided: OB Delivery
[2025-01-06] MEDS: PRENATAL VITAMIN 1 TAB PO SCH (07:32)
[2025-01-06] MEDS: FERROUS SULFATE 325 MG TAB PO SCH (07:33)
[2025-01-06] MEDS: prednisoLONE acetate 1% OP SUSP 5 ML BTL OP SCH (10:05)
[2025-01-06] MEDS ORDERED: DC INTRASPINAL MORPHINE ONE (12:24)
[2025-01-06] MEDS ORDERED: diphenhydrAMINE 50 MG/ML VIAL IV PRN (12:25)
[2025-01-06] MEDS ORDERED: diphenhydrAMINE Capsule 25 MG CAP PO PRN (12:25)
[2025-01-06] MEDS ORDERED: ONDANSETRON INJ 2 MG/ML 2 ML VIAL IV PRN (12:25)
[2025-01-06] MEDS ORDERED: ZOLPIDEM TARTRATE 5 MG TAB PO PRN (12:25)
[2025-01-06] MEDS ORDERED: PROMETHAZINE 12.5 MG/50.5 ML BAG IV PRN (12:25)
[2025-01-06] MEDS ORDERED: HYDROmorphone INJ 0.5 MG/0.5 ML SYR IV PRN (12:25)
[2025-01-06] MEDS ORDERED: oxyCODONE HCL IR 5 MG TAB (IMMEDIATE RELEASE) PO PRN (12:25)
[2025-01-06] MEDS ORDERED: KETOROLAC 30 MG/ML VIAL IV PRN (19:30)
[2025-01-06] MEDS: IBUPROFEN 600 MG TAB PO SCH (19:46)
[2025-01-06] MEDS: bisacodyL 5 MG TABEC PO SCH (19:46)
[2025-01-06 21:06] VITALS: O2SAT 98
[2025-01-07 00:18] VITALS: RESP 16
[2025-01-07 06:13] LABS: Hemoglobin 10.4 g/dl (12.0-16.0)
--- NOTE | 2025-01-07 06:19 | Obstetrical Progress Note ---
Date of Service January 07, 2025 Assessment & Plan (1) delivery delivered: Plan: 29 years P2 , 2nd POD following delivery for decels and previous CS. Has not decided about discharge, will think after baby's round. Continue care as per protocol. Encouraged nursing with mother's milk. Encouraged ambulation. Encouraged deep breathing. Admission and Anticipated Discharge Date Admission Date: January 05, 2025 Supervising Physician Co-Signing Physician Notes Resident Physician Supervision Note: I interviewed and examined the patient. Discussed with Dr. Wooten and agree with findings and plan as documented in the note. Any exceptions or clarifications are listed here: POD2 s/p rLTCS, doing well. Baby in room now as well, would like to go home today if baby can but otherwise will stay Documented By: Amy Gill MD Subjective 29 years P2 , 2nd POD following delivery for decels and previous CS. No active complains Mom and Baby doing well. baby back to bedside. Pain: Mild, intermittent, manageable on painkillers. Lochia: Mild Diet: Regular OB diet Gas:Passed Peeing: Well after mijares removal yest Ambulation: well, without any complication Answered her queries. Review of Systems Review of Systems: No SOB, chest pain, leg pain No dizziness, headache, palpitation No Blurring of vision , fever Physical Exam Physical Exam: General: Alert and oriented. No acute distress. CVS: Looks well perfused. Respiratory: No increased work of breathing. Abdomen: Bowel sound +. Soft, nontender Uterus: Fundus firm and palpable few cm below the umbilicus. Incision site looks healthy: Dry, No swelling, Erythema Lower extremities: No LE edema. No deep calf pain. Results & Data Vital Signs (Past 12 Hours) Vital Signs Temp Pulse Resp BP Pulse Ox O2 Del Method 01/07/25 00:05 36.7 C 84 16 99/57 L 98 Room Air 01/06/25 19:50 36.5 C 84 18 103/63 98 Room Air Resident Activity Tracking Resident Involvement: Resident Care Provided Care Provided: OB Delivery
[2025-01-07] MEDS: ACETAMINOPHEN 325 MG TAB PO PRN (14:49)
[2025-01-07 18:05] VITALS: BP 112/78; PULSE 72; TEMP 98.2
[2025-01-07] MEDS ORDERED: IBUPROFEN 600 MG TAB PO PRN (19:30)
== END 2025-01-07 18:06 | disposition home or self-care (01) | DRG 788 ==
LOC: OPB 15:09 → 4S1 15:11 → 4E2 21:41